=== PATIENT | male | born 1980 | race Hispanic/Latino ===

== ENCOUNTER 2018-08-02 15:11 | Emergency (ER) | payer OTHER | END 2018-08-02 16:13 | disposition home or self-care (01) | LOC: SCSER 15:11 | DX: T63.301A Toxic effect of unspecified spider venom, accidental (unintentional), initial encounter (principal) | CPT/HCPCS: 99282 ==

== ENCOUNTER 2019-02-04 10:08 | Outpatient (CLI) | payer OTHER ==
--- NOTE | 2019-02-04 10:36 | RAD ---
RIGHT SHOULDER 3 VIEWS: HISTORY: Acute pain of the right shoulder. FINDINGS/IMPRESSION: No acute fracture or dislocation was seen. There is mild degenerative change in the acromioclavicula r joint. POS: [facility]
== END 2019-02-04 10:09 | disposition home or self-care (01) ==
LOC: BICRAD 10:08
PROVIDERS: ATTEND Physician Assistant
DX: M25.511 Pain in right shoulder (principal); M19.011 Primary osteoarthritis, right shoulder